=== PATIENT | female | born 1940 | race Caucasian/White ===

== ENCOUNTER 2017-11-05 08:31 | Emergency (ER) | END 2017-11-05 10:04 | disposition home or self-care (01) ==

== ENCOUNTER 2018-11-06 20:59 | Emergency (ER) | payer MEDICARE, OTHER ==
[~2018-11-06] VITALS: Ht 157.5 cm; Wt 72.3 kg
[~2018-11-06 20:59] MED LIST: HYDR-4011 PO; IBUP-1542 PO
[2018-11-06 21:01] VITALS: Ht 157.5 cm; Wt 72.3 kg
--- NOTE | 2018-11-06 21:51 | ERD ---
ER Documentation Chief Complaint Chief Complaint CUT TO R BOTTOM LIP HPI This is a 78-year-old female presents emergency department with complaints of right lower lip laceration that started Thursday. Patient stated that it bled. No bleeding at this time. Denies history of seizures, head injuries. Denies use of blood thinners. LMP: Denies headache, head injury, loss of consciousness, dizziness, neck pain, neck stiffness, throat pain, difficulty swallowing, difficulty breathing lying flat, shoulder pain, chest pain, back pain, abdominal pain, nausea, vomiting, constipation, diarrhea, urinary symptoms, or possibility being , loss of bowel and bladder control, trauma, injury, falls, difficulty walking due to pain, numbness or tingling sensation, calf pain, recent travel, recent major surgery in the last 3 weeks, calf pain, recent long travel, recent exposure to any illness, recent antibiotic use in the last 3 months, fever, chills, seizures. Past medical history: Surgical history: Social: Denies smoking, use of alcoholic beverages, use of illegal drugs. ROS All systems reviewed and are negative except as per history of present illness. Medications Home Meds Active Scripts Hydrophilic Base* (Aquaphor*) 454 Gm-Topical Oint, 1 APPLIC TOP BID for 7 Days, JAR Prov:MARIANO KAYE F 11/06/18 Hydrocodone/Acetaminophen ([place] 5-325 Tablet) 1 Each Tablet, 1 TAB PO Q6H PRN for PAIN, #12 TAB Prov:LEKKOS,APOSTOLOS A. DO 11/05/17 Ibuprofen* (Motrin*) 600 Mg Tab, 600 MG PO Q8, #30 TAB Prov:LEKKOS,APOSTOLOS A. DO 11/05/17 Allergies Allergies: Coded Allergies: No Known Allergy (Unverified , 11/05/17) PMhx/Soc History of Surgery: No Anesthesia Reaction: No Hx Neurological Disorder: No Hx Respiratory Disorders: No Hx Cardiac Disorders: Yes (HTN, High cholesterol) Hx Psychiatric Problems: No Hx Miscellaneous Medical Probl: No Hx Alcohol Use: No Hx Substance Use: No Hx Tobacco Use: No Physical Exam Vitals Vital Signs Date Temp Pulse Resp B/P (MAP) Pulse Ox O2 O2 Flow FiO2 Time Delivery Rate 11/06/18 98.2 80 16 137/84 99 Room Air 22:26 (101) 11/06/18 99.1 93 16 187/96 99 21:01 (126) Physical Exam Const: No acute distress Head: Atraumatic. Normocephalic. Scalp is intact. No signs of trauma to the head. Eyes: Normal Conjunctiva. There is no visual field loss. ENT: Normal External Ears, Nose and Mouth. Lips/throat: Right lower lip has a laceration measuring approximately 0.3 cm in length. No active bleeding. No tongue laceration. No tongue swelling. Able to control tongue movement. No signs of tooth avulsions. Neck: Full range of motion. No meningismus. No nuchal rigidity with no signs of meningeal irritation. Resp: Clear to auscultation bilaterally Cardio: Regular rate and rhythm, no murmurs Abd: Soft, non tender, non distended. Normal bowel sounds Skin: No petechiae or rashes Back: No midline or flank tenderness Ext: No cyanosis, or edema Neur: Awake and alert. No obvious facial droops. Follows commands. Sensation is intact. Equal mold finisher. Equal strength in bilateral upper and lower extremities. Romberg test negative. No neurological deficits. Psych: Normal Mood and Affect Procedures/MDM Diagnostic tests: Clinical exam. Treatment: Not applicable. Re-evaluation: No active bleeding. No seizure activity here in the emergency department. Patient and family member stated that they are comfortable going home. Patient and family member stated that they are ready to go home. Differential diagnosis I have low suspicion for cold sores, sepsis, deep space infection, seizures. Final diagnosis: Lip laceration. Prescription: Aquaphor. Follow-up with PCP in the next 24-48 hours. Come back here in the emergency department for any new symptoms or any worsening symptoms. All questions and concerns were answered. Patient and family members verbalized understanding and agreed with plan of care. Hemodynamically stable on discharge. Departure Diagnosis: Primary Impression: Lip laceration Condition: Stable Additional Instructions: Follow-up with PCP in the next 24-48 hours. Come back here in the emergency department for any new symptoms or any worsening symptoms. 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
[2018-11-06] MEDS ORDERED: HDRP454O TOP (22:14)
[2018-11-06 22:26] VITALS: BP 137/84; PULSE 80; RESP 16
== END 2018-11-06 22:27 | disposition home or self-care (01) ==
LOC: FTE 20:59
DX: S01.511A Laceration without foreign body of lip, initial encounter (principal); I10 Essential (primary) hypertension; X58.XXXA Exposure to other specified factors, initial encounter; Y92.9 Unspecified place or not applicable
CPT/HCPCS: 99282

== ENCOUNTER 2018-11-14 20:23 | Inpatient (IN) | payer MEDICARE, OTHER ==
[~2018-11-14] VITALS: Ht 142.2 cm; Wt 75.0 kg
[~2018-11-14 20:23] MED LIST changes: +HDRP454O TOP
[2018-11-14] MEDS ORDERED: CEFTRIAXONE 1 GM/50 ML (PMX) 50 ML IVPB STA (22:23)
[2018-11-14] MEDS: AZITHROMYCIN 500MG/NS (PMX) 250 ML IVPB SCH (23:41)
[2018-11-15] VITALS (7 sets, daily range): BP systolic 132–169; BP diastolic 64–84; PULSE 82–94; RESP 16–18; Ht 142.2 cm; Wt 75.0 kg
[2018-11-15] MEDS ORDERED: NACL 0.9% 3 ML SYG IV SCH (00:30)
[2018-11-15] MEDS ORDERED: BISACODYL (EC) 5 MG TAB PO PRN (00:30)
[2018-11-15] MEDS ORDERED: DOCUSATE SODIUM 100 MG CAP PO PRN (00:30)
[2018-11-15] MEDS ORDERED: ONDANSETRON 4 MG INJ IV PRN (00:30)
[2018-11-15] MEDS ORDERED: KETOROLAC 15 MG INJ IV STA (01:14)
--- NOTE | 2018-11-15 02:33 | HP ---
Date/Time of Note Date/Time of Note DATE: 11/15/18 TIME: 02:32 Assessment/Plan VTE Prophylaxis SCD applied (from Nsg): Yes Pharmacological prophylaxis: NA/contraindicated Pharm contraindication: low risk/ambulating Lines/Catheters IV Catheter Type (from Nrsg): Saline Lock Assessment/Plan Hospital Course This is a 78-year female being admitted to the telemetry floor for: #1 sepsis: Secondary to community-acquired pneumonia: Ceftriaxone, azithromycin IV. Trend lactate levels, first that was normal gentle IV fluid hydration. Await culture results. #2 community-acquired pneumonia: Ceftriaxone, azithromycin #3 abnormal chest x-ray: There is concern for possible neoplasm. Given that the patient does have a degree of anemia will obtain a CT of the chest to further evaluate. #4 microcytic anemia: We will check iron stores, check stool occult blood #5 hypertension: Currently not on medications monitor closely #6 diabetes mellitus: We will check hemoglobin A 1C, insulin sliding scale #7 hyperlipidemia: We will check lipid panel, currently not on statin #8 DVT GI prophylaxis: SCDs, no GI prophylaxis indicated Further treatment strategy will be implemented as per the clinical course. Result Diagram: 11/14/18 2338 11/14/18 2324 Results 24hrs Laboratory Tests Test 11/14/18 23:23 11/14/18 23:24 11/14/18 23:37 11/14/18 23:38 POC Venous Lactate 1.7 Sodium Level 138 Potassium Level 4.2 Chloride Level 104 Carbon Dioxide Level 24 Anion Gap 10 Blood Urea Nitrogen 18 Creatinine 1.08 H Est Glomerular Filtrat Rate mL/min Glucose Level 150 Calcium Level 8.9 Lactic Acid Level 1.7 White Blood Count 12.8 H Red Blood Count 4.29 Hemoglobin 11.1 L Hematocrit 34.1 L Mean Corpuscular 79.5 L Volume Mean Corpuscular 25.9 L Hemoglobin Mean Corpuscular 32.6 Hemoglobin Concent Red Cell 21.9 H Distribution Width Platelet Count 131 L Mean Platelet Volume Immature 0.400 Granulocytes % Neutrophils % 78.7 H Lymphocytes % 9.8 L Monocytes % 9.0 Eosinophils % 1.9 Basophils % 0.2 Nucleated Red Blood 0.0 Cells % Immature 0.050 H Granulocytes # Neutrophils # 10.1 H Lymphocytes # 1.3 Monocytes # 1.2 H Eosinophils # 0.2 Basophils # 0.0 Nucleated Red Blood 0.0 Cells # HPI/ROS Admit Date/Time Admit Date/Time Nov 14, 2018 at 22:58 Hx of Present Illness Plan: Back pain x2 days This is a 78-year-old female with no significant past medical history presents to the emergency department complaining of pain just below her right scapula for the past 2 days she also reports pain when taking deep inspiration with associated shortness of breath. She denies any chest pain. She denies any fevers or chills or other symptoms at this time. Symptoms are currently moderate in severity. Review: NKDA medications: See MAR ROS Const: As per HPI Eyes : No pain discharge or redness or change in visual acuity ENT: No pain, sore throat, congestion, congestion, dysphagia or discharge Respiratory: As per HPI Cardiovascular: No chest pain, palpitation, PND, or edema GI : no change in appetite, abdominal pain, nausea, vomiting, diarrhea, constipation, or change in the color his stool Genitourinary: No dysuria, hematuria, flank pain , discharge or CVA tenderness Musculoskeletal: No joint pain, back pain, neck pain, restricted range of motion in neck or joints Skin: No rash, bruising or hives Neuro: No headache, dizziness, syncope, seizure, focal weakness Endocrine: No polyuria, polydipsia, temperature intolerance Psych: No hallucination, depression, anxiety or suicidal ideation PMH/Family/Social Past Medical History Hypertension, diabetes, hyperlipidemia Medications Current Medications Azithromycin 250 ml @ 250 mls/hr Q24H IVPB Last administered on 11/14/18at 23:41; Admin Dose 250 MLS/HR; Start 11/14/18 at 22:30 IV Flush (NS 3 ml) 3 ml PER PROTOCOL IV ; Start 11/15/18 at 00:30 Ondansetron HCl (Zofran Inj) 4 mg Q4 PRN IV NAUSEA/VOMITING; Start 11/15/18 at 00:30 Acetaminophen (Tylenol Tab) 650 mg Q6H PRN PO .PAIN 1-3 OR TEMP; Start 11/15/18 at 00:30 Docusate Sodium (Colace) 100 mg Q12H PRN PO .CONSTIPATION; Start 11/15/18 at 00:30 Bisacodyl (Dulcolax) 5 mg DAILY PRN PO .CONSTIPATION; Start 11/15/18 at 00:30 Coded Allergies: No Known Allergy (Unverified , 11/05/17) Past Surgical History x1, right foot surgery Family History Significant Family History: no pertinent family hx Social History Alcohol Use: none Smoking Status: Never smoker Drug Use: none Exam/Review of Systems Vital Signs Vitals Vital Signs Date Temp Pulse Resp B/P (MAP) Pulse Ox O2 O2 Flow FiO2 Time Delivery Rate 11/15/18 98.1 89 18 150/84 95 01:51 (106) 11/15/18 Nasal 2.0 00:40 Cannula Intake and Output 11/14/18 11/14/18 11/15/18 1414:59 22:59 06:59 IntakeIntake Total 300 ml BalanceBalance 300 ml Exam Exam General: Patient is a pleasant female currently lying in bed in mild distress from back pain HEENT: Atraumatic, normocephalic. The pupils are equal, round and reactive. Extraocular motor are intact Neck: Supple with full range of motion. No rigidity or meningismus Chest: Nontender Lungs: Crackles at the right lung field, non-labored breathing Heart: Normal S1-S2, Regular rhythm and rate. No murmur, S3, or S4 Abdomen: Soft , nontender, nondistended , bowel sounds are present. No guarding no rebound tenderness , No masses or organomegaly. No costovertebral temporal angle mass Extremities: Normal to inspection, no edema no cyanosis Neurologic: Normal mental status, speech normal, cranial nerves II through XII are intact, motor and sensory are intact, Additional Comments PROCEDURE: XR Chest. CLINICAL INDICATION: Cough. TECHNIQUE: Two views. Frontal and lateral. COMPARISON: No prior study is available for comparison. FINDINGS: There is right lung base patchy consolidation. Bilateral perihilar prominence The heart size is normal. there is a tortuous calcified thoracic aorta. There is no pleural effusion. There is no pneumothorax. There are degenerative changes of the spine. IMPRESSION: There is right lung base patchy consolidation. Bilateral perihilar prominence . Follow-up to resolution is recommended to exclude underlying neoplasm. Physician Mishel Date Time Electronically viewed and signed by Yoan Drew Physician on 11/14/2018 21:49 RD/ CC: CULLEN STORM MD [id number] PROCEDURE: XR Lumbar Spine. CLINICAL INDICATION: Low back pain. TECHNIQUE: AP, lateral and cone-down lateral views of the lumbar spine were obtained. 3 images. COMPARISON: None. FINDINGS: Bony alignment: Normal. Vertebral body heights: Maintained. 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 Otherwise reasonably well maintained for a patient of this age.. Enthesopathy: Minimal. Facet joints: Degenerative change at L4-5 and L5-S1. Posterior elements: No visible abnormalities. Aortic calcifications: Minimal. Other soft tissues: Unremarkable. IMPRESSION: 1. Mild degenerative change in the lumbar spine for a patient of this age. 2. No evidence of compression fracture in the lumbar spine. RPTAT:AAJJ Physician Shahla Date Time Electronically viewed and signed by Physician Shahla on 11/14/2018 23:05 GW/ CC: JOHNIE ISBELL [id number] JOHNIE ISBELL Nov 15, 2018 02:33
--- NOTE | 2018-11-15 05:09 | ERD ---
ER Documentation Chief Complaint Chief Complaint BACK PAIN, R SHOULDER BLADE X'S 2 DAYS HPI 78-year-old female with no significant past medical history presents to the emergency department complaining of pain just below her right scapula for the past several days. She also reports pain when taking deep inspiration with associated shortness of breath. She denies any chest pain. She denies any fevers or chills or other symptoms at this time. Symptoms are currently moderate in severity. ROS All systems reviewed and are negative except as per history of present illness. Medications Home Meds Active Scripts Hydrophilic Base* (Aquaphor*) 454 Gm-Topical Oint, 1 APPLIC TOP BID for 7 Days, JAR Prov:MARIANO KAYE F 11/06/18 Hydrocodone/Acetaminophen ([place] 5-325 Tablet) 1 Each Tablet, 1 TAB PO Q6H PRN for PAIN, #12 TAB Prov:LEKKOS,APOSTOLOS A. DO 11/05/17 Ibuprofen* (Motrin*) 600 Mg Tab, 600 MG PO Q8, #30 TAB Prov:LEKKOS,APOSTOLOS A. DO 11/05/17 Allergies Allergies: Coded Allergies: No Known Allergy (Unverified , 11/05/17) PMhx/Soc History of Surgery: Yes (Hysterectomy, pt is unable to remember the date) Anesthesia Reaction: No Hx Neurological Disorder: No Hx Respiratory Disorders: No Hx Cardiac Disorders: Yes (Hypertension and high cholesterol, pt is unable to remember dates ) Hx Psychiatric Problems: No Hx Miscellaneous Medical Probl: No Hx Alcohol Use: No Hx Substance Use: No Hx Tobacco Use: No Smoking Status: Never smoker FmHx Family History: No diabetes Physical Exam Vitals Vital Signs Date Temp Pulse Resp B/P (MAP) Pulse Ox O2 O2 Flow FiO2 Time Delivery Rate 11/14/18 100.4 89 18 171/75 93 20:26 (107) Physical Exam Const: No acute distress Head: Atraumatic Eyes: Normal Conjunctiva ENT: Normal External Ears, Nose and Mouth. Neck: Full range of motion. No meningismus. Resp: Mild crackles noted to the right lower lung field. No respiratory distress. Cardio: Regular rate and rhythm, no murmurs Abd: Soft, non tender, non distended. Normal bowel sounds Skin: No petechiae or rashes Back: No midline or flank tenderness Ext: No cyanosis, or edema Neur: Awake and alert Psych: Normal Mood and Affect Result Diagram: 11/14/18 2338 11/14/18 2324 Results 24 hrs Current Medications Medications Dose Sig/Bhupendra Start Time Status Last (Trade) Ordered Route PRN Stop Time Admin Dose Reason Admin Ceftriaxone 50 ml @ ONCE STAT 11/14/18 DC 11/14/18 Sodium 100 mls/hr IVPB 22:23 23:40 11/14/18 22:52 Azithromycin 250 ml @ Q24H IVPB 11/14/18 11/14/18 250 mls/hr 22:30 23:41 Procedures/MDM 78-year-old female presents with signs and symptoms and chest x-ray most consistent with pneumonia. Patient is also mildly hypoxic. No evidence to suggest sepsis. Patient will need to be admitted for further treatment including IV antibiotics. Patient was made aware of medical decision making and plan for admission and she was in agreement. I discussed this case with attending ED physician, Dr. Gregg Rodríguez, who is in agreement with the ED course and plan for admission and he further facilitated the admission process. Patient remained hemodynamically stable under my direct care. Departure Diagnosis: Primary Impression: Pneumonia Condition: LULA Clay PA-C Nov 15, 2018 05:09
[2018-11-15] MEDS: ACETAMINOPHEN 325 MG TAB PO PRN ×3 (06:51→17:53)
--- NOTE | 2018-11-15 15:44 | PN ---
Date/Time of Note Date/Time of Note DATE: 11/15/18 TIME: 15:41 Assessment/Plan VTE Prophylaxis Risk score (from [facility])>0 risk: 4 SCD applied (from [facility]): Yes Pharmacological prophylaxis: heparin Lines/Catheters [facility] Urinary Cath still in place: No Assessment/Plan Hospital Course Assessment and plan 1. Sepsis secondary to community acquired pneumonia. - Continue antibiotic. - Cultures pending. - Antipyretics for fever. 2. Abnormal chest x-ray. - Patient did have initial chest x-ray suspect for possible neoplasm. - CT scan of the chest is pending. Follow-up. 3. Hypertension. - Monitor BP. - Antihypertensives as needed. 4. Diabetes. - Continue insulin regimen. 5. hyperlipidemia. - Follow-up on CHD panel 6. Anemia. - monitor H&H. Disposition and plan. Follow-up on CT scan of the chest. Further recommend ations pending clinical course Discussed POC with Dr. Santo Result Diagram: 11/14/18 7028 11/14/18 2324 Results 24hrs Laboratory Tests Test 11/14/18 23:23 11/14/18 23:24 11/14/18 23:37 11/14/18 23:38 POC Venous Lactate 1.7 Sodium Level 138 Potassium Level 4.2 Chloride Level 104 Carbon Dioxide Level 24 Anion Gap 10 Blood Urea Nitrogen 18 Creatinine 1.08 H Est Glomerular Filtrat Rate mL/min Glucose Level 150 Calcium Level 8.9 Lactic Acid Level 1.7 White Blood Count 12.8 H Red Blood Count 4.29 Hemoglobin 11.1 L Hematocrit 34.1 L Mean Corpuscular 79.5 L Volume Mean Corpuscular 25.9 L Hemoglobin Mean Corpuscular 32.6 Hemoglobin Concent Red Cell 21.9 H Distribution Width Platelet Count 131 L Mean Platelet Volume Immature 0.400 Granulocytes % Neutrophils % 78.7 H Lymphocytes % 9.8 L Monocytes % 9.0 Eosinophils % 1.9 Basophils % 0.2 Nucleated Red Blood 0.0 Cells % Immature 0.050 H Granulocytes # Neutrophils # 10.1 H Lymphocytes # 1.3 Monocytes # 1.2 H Eosinophils # 0.2 Basophils # 0.0 Nucleated Red Blood 0.0 Cells # Test 11/15/18 02:26 11/15/18 05:20 11/15/18 09:48 11/15/18 09:49 Lactic Acid Level 1.9 1.6 Iron Level 17 L Total Iron Binding 329 Capacity Percent Iron 5 L Saturation Hemoglobin A1c 6.0 H Magnesium Level 2.5 Ferritin 21.9 Thyroid Stimulating 1.430 Hormone (TSH) Subjective 24 Hr Interval Summary Free Text/Dictation Still reports having some pain on posterior portion of back. Reports better breathing at this time. Exam/Review of Systems Exam Vitals Vital Signs Date Temp Pulse Resp B/P (MAP) Pulse Ox O2 O2 Flow FiO2 Time Delivery Rate 11/15/18 98.2 89 17 169/73 94 15:28 (105) 11/15/18 Nasal 2.0 08:10 Cannula Intake and Output 11/14/18 11/14/18 11/15/18 1515:00 23:00 07:00 IntakeIntake Total 360 ml OutputOutput Total 1 ml BalanceBalance 359 ml Constitutional: alert, oriented, obese Head: normocephalic Neck: supple, non-tender Respiratory: clear to auscultation Cardiovascular: regular rate and rhythm Gastrointestinal: soft, non-tender Neurological: BIOCHEMICAL ENGINEER II-XII intact, nl mental status, nl speech Results Results 24hrs Laboratory Tests Test 11/14/18 23:23 11/14/18 23:24 11/14/18 23:37 11/14/18 23:38 POC Venous Lactate 1.7 Sodium Level 138 Potassium Level 4.2 Chloride Level 104 Carbon Dioxide Level 24 Anion Gap 10 Blood Urea Nitrogen 18 Creatinine 1.08 H Est Glomerular Filtrat Rate mL/min Glucose Level 150 Calcium Level 8.9 Lactic Acid Level 1.7 White Blood Count 12.8 H Red Blood Count 4.29 Hemoglobin 11.1 L Hematocrit 34.1 L Mean Corpuscular 79.5 L Volume Mean Corpuscular 25.9 L Hemoglobin Mean Corpuscular 32.6 Hemoglobin Concent Red Cell 21.9 H Distribution Width Platelet Count 131 L Mean Platelet Volume Immature 0.400 Granulocytes % Neutrophils % 78.7 H Lymphocytes % 9.8 L Monocytes % 9.0 Eosinophils % 1.9 Basophils % 0.2 Nucleated Red Blood 0.0 Cells % Immature 0.050 H Granulocytes # Neutrophils # 10.1 H Lymphocytes # 1.3 Monocytes # 1.2 H Eosinophils # 0.2 Basophils # 0.0 Nucleated Red Blood 0.0 Cells # Test 11/15/18 02:26 11/15/18 05:20 11/15/18 09:48 11/15/18 09:49 Lactic Acid Level 1.9 1.6 Iron Level 17 L Total Iron Binding 329 Capacity Percent Iron 5 L Saturation Hemoglobin A1c 6.0 H Magnesium Level 2.5 Ferritin 21.9 Thyroid Stimulating 1.430 Hormone (TSH) Medications Medication Current Medications Azithromycin 250 ml @ 250 mls/hr Q24H IVPB Last administered on 11/14/18at 23:41; Admin Dose 250 MLS/HR; Start 11/14/18 at 22:30 IV Flush (NS 3 ml) 3 ml PER PROTOCOL IV ; Start 11/15/18 at 00:30 Ondansetron HCl (Zofran Inj) 4 mg Q4 PRN IV NAUSEA/VOMITING; Start 11/15/18 at 00:30 Acetaminophen (Tylenol Tab) 650 mg Q6H PRN PO .PAIN 1-3 OR TEMP Last administered on 11/15/18at 11:50; Admin Dose 650 MG; Start 11/15/18 at 00:30 Docusate Sodium (Colace) 100 mg Q12H PRN PO .CONSTIPATION; Start 11/15/18 at 00:30 Bisacodyl (Dulcolax) 5 mg DAILY PRN PO .CONSTIPATION; Start 11/15/18 at 00:30 Morphine Sulfate (morphine) 1 mg Q4H PRN IV SEVERE PAIN LEVEL 7-10; Start 11/15 at 07:30 HUONG COHN NP Nov 15, 2018 15:44
[2018-11-15] MEDS: morphine 2 MG INJ IV PRN (15:46)
[2018-11-15] MEDS: HEPARIN 5,000 UNIT/1 ML VIAL SC SCH (21:00)
[2018-11-15] MEDS ORDERED: CEFTRIAXONE 1 GM/50 ML (PMX) 50 ML IVPB ONE (22:30)
[2018-11-16] MEDS: AZITHROMYCIN 500MG/NS (PMX) 250 ML IVPB SCH ×2 (00:02→22:06)
[2018-11-16 03:47] VITALS: BP 146/66; PULSE 84; RESP 18
[2018-11-16 07:07] VITALS: BP 151/72; PULSE 91; RESP 16
[2018-11-16] MEDS: HEPARIN 5,000 UNIT/1 ML VIAL SC SCH ×2 (08:58→21:34)
--- NOTE | 2018-11-16 14:16 | PN ---
Date/Time of Note Date/Time of Note DATE: 11/16/18 TIME: 14:13 Assessment/Plan VTE Prophylaxis Risk score (from [facility])>0 risk: 4 SCD applied (from [facility]): Yes Pharmacological prophylaxis: heparin Lines/Catheters IV Catheter Type (from [facility] Saline Lock Urinary Cath still in place: No Assessment/Plan Hospital Course Assessment and plan 1. Sepsis secondary to community acquired pneumonia. - Continue antibiotic. - Antipyretics prn for fever. 2. Abnormal chest x-ray. - Patient did have initial chest x-ray suspect for possible neoplasm. - CT scan of the chest : Indeterminate 2.3 cm mass-like opacity is present in the perihilar left lower lobe - neoplasm is not excluded. - pulmonary and oncology consult to follow 3. Hypertension. - Monitor BP. - Antihypertensives as needed. 4. Diabetes. - Continue insulin regimen. 5. hyperlipidemia. - Follow-up on CHD panel 6. Anemia. - monitor H&H. Disposition and plan. continue abx. pulmonary and oncology consult to follow. Monitor inhouse Discussed POC with Dr. Santo Result Diagram: 11/16/18 0513 11/16/18 0513 Results 24hrs Laboratory Tests Test 11/16/18 05:13 White Blood Count 12.6 H Red Blood Count 4.02 L Hemoglobin 10.4 L Hematocrit 31.6 L Mean Corpuscular Volume 78.6 L Mean Corpuscular Hemoglobin 25.9 L Mean Corpuscular Hemoglobin Concent 32.9 Red Cell Distribution Width 21.2 H Platelet Count 182 # Mean Platelet Volume 10.9 H Immature Granulocytes % 0.500 H Neutrophils % 76.8 Lymphocytes % 13.4 L Monocytes % 8.2 Eosinophils % 0.9 Basophils % 0.2 Nucleated Red Blood Cells % 0.0 Immature Granulocytes # 0.060 H Neutrophils # 9.7 H Lymphocytes # 1.7 Monocytes # 1.0 H Eosinophils # 0.1 Basophils # 0.0 Nucleated Red Blood Cells # 0.0 Sodium Level 139 Potassium Level 3.8 Chloride Level 108 Carbon Dioxide Level 21 Anion Gap 10 Blood Urea Nitrogen 10 Creatinine 0.56 Est Glomerular Filtrat Rate mL/min Glucose Level 138 Calcium Level 8.8 Total Bilirubin 1.0 Direct Bilirubin 0.00 Indirect Bilirubin 1.0 Aspartate Amino Transf (AST/SGOT) 67 H Alanine Aminotransferase (ALT/SGPT) 66 Alkaline Phosphatase 122 H Total Protein 7.3 Albumin 3.8 Globulin 3.50 H Albumin/Globulin Ratio 1.08 Subjective 24 Hr Interval Summary Free Text/Dictation Reports better breathing and less right shoulder pain. Exam/Review of Systems Exam Vitals Vital Signs Date Temp Pulse Resp B/P (MAP) Pulse Ox O2 O2 Flow FiO2 Time Delivery Rate 11/16/18 Nasal 2.0 07:52 Cannula 11/16/18 98.3 91 16 151/72 94 07:07 (98) Intake and Output 11/15/18 11/15/18 11/16/18 1515:00 23:00 07:00 IntakeIntake Total 620 ml 350 ml BalanceBalance 620 ml 350 ml Exam Constitutional: alert, oriented, obese Head: normocephalic Neck: supple, non-tender Respiratory: clear to auscultation Cardiovascular: regular rate and rhythm Gastrointestinal: soft, non-tender Neurological: CLINICAL DATA PROGRAMMER II-XII intact, nl mental status, nl speech Results Results 24hrs Laboratory Tests Test 11/16/18 05:13 White Blood Count 12.6 H Red Blood Count 4.02 L Hemoglobin 10.4 L Hematocrit 31.6 L Mean Corpuscular Volume 78.6 L Mean Corpuscular Hemoglobin 25.9 L Mean Corpuscular Hemoglobin Concent 32.9 Red Cell Distribution Width 21.2 H Platelet Count 182 # Mean Platelet Volume 10.9 H Immature Granulocytes % 0.500 H Neutrophils % 76.8 Lymphocytes % 13.4 L Monocytes % 8.2 Eosinophils % 0.9 Basophils % 0.2 Nucleated Red Blood Cells % 0.0 Immature Granulocytes # 0.060 H Neutrophils # 9.7 H Lymphocytes # 1.7 Monocytes # 1.0 H Eosinophils # 0.1 Basophils # 0.0 Nucleated Red Blood Cells # 0.0 Sodium Level 139 Potassium Level 3.8 Chloride Level 108 Carbon Dioxide Level 21 Anion Gap 10 Blood Urea Nitrogen 10 Creatinine 0.56 Est Glomerular Filtrat Rate mL/min Glucose Level 138 Calcium Level 8.8 Total Bilirubin 1.0 Direct Bilirubin 0.00 Indirect Bilirubin 1.0 Aspartate Amino Transf (AST/SGOT) 67 H Alanine Aminotransferase (ALT/SGPT) 66 Alkaline Phosphatase 122 H Total Protein 7.3 Albumin 3.8 Globulin 3.50 H Albumin/Globulin Ratio 1.08 Medications Medication Current Medications Azithromycin 250 ml @ 250 mls/hr Q24H IVPB Last administered on 11/16/18at 00:02; Admin Dose 250 MLS/HR; Start 11/14/18 at 22:30 IV Flush (NS 3 ml) 3 ml PER PROTOCOL IV ; Start 11/15/18 at 00:30 Ondansetron HCl (Zofran Inj) 4 mg Q4 PRN IV NAUSEA/VOMITING; Start 11/15/18 at 00:30 Acetaminophen (Tylenol Tab) 650 mg Q6H PRN PO .PAIN 1-3 OR TEMP Last administered on 11/16/18at 00:00; Admin Dose 650 MG; Start 11/15/18 at 00:30 Docusate Sodium (Colace) 100 mg Q12H PRN PO .CONSTIPATION; Start 11/15/18 at 00:30 Bisacodyl (Dulcolax) 5 mg DAILY PRN PO .CONSTIPATION; Start 11/15/18 at 00:30 Morphine Sulfate (morphine) 1 mg Q4H PRN IV SEVERE PAIN LEVEL 7-10 Last administered on 11/15/18at 15:46; Admin Dose 1 MG; Start 11/15/18 at 07:30 Heparin Sodium (Porcine) (Heparin (5000 Units/1ml)) 5,000 unit BID SC Last administered on 11/16/18at 08:58; Admin Dose 5,000 UNIT; Start 11/15/18 at 21:00 HUONG COHN NP Nov 16, 2018 14:16
[2018-11-16 15:19] VITALS: BP 126/60; PULSE 83; RESP 17
--- NOTE | 2018-11-16 15:22 | CONS ---
DATE OF ADMISSION: 11/14/2018 DATE OF CONSULTATION: 11/16/2018 TYPE OF CONSULTATION: Pulmonary. REASON FOR CONSULTATION: Shortness of breath. Thank you, Dr. Sierra, for this consultation. HISTORY OF PRESENT ILLNESS: This is a 78-year-old lady who came in with several day history of right scapular pain, no orthopnea, PND, no fever, no chills, no chest pain or palpitations. Had a subsequ ent CT of the chest, found to have a 2.3 cm left perihilar mass concerning for possible malignancy wi th trace pleural effusion. No hemoptysis, hematemesis, no nausea, no vomiting, no chest pain or palp itations. PAST MEDICAL HISTORY: Degenerative joint disease. MEDICATIONS: Per chart. ALLERGIES: None. SOCIAL HISTORY: Nonsmoker, no alcohol, no history of drug use. FAMILY HISTORY: Noncontributory. SYSTEMS REVIEW: A 12-point review of systems was negative other than that mentioned above. PHYSICAL EXAMINATION: GENERAL: Well-nourished, well-developed lady, comfortable at rest, no acute distress. VITAL SIGNS: Currently afebrile, pulse is 90, blood pressure 150/72, O2 saturation 96% on 2 L nasal cannula. NECK: Supple. No JVD or lymphadenopathy. CARDIAC: S1, S2, no added sounds or murmurs. CHEST: Diminished air entry bilaterally. EXTREMITIES: No cyanosis, clubbing, 1+ edema. NEUROLOGICAL: Grossly intact. No focal deficits. LABORATORY DATA: White count 12.6, hemoglobin 10.4, platelets 182. BUN 10, creatinine 0.56. Should er x-ray shows osteopenia, CT chest findings as above. IMPRESSION AND PLAN: Perihilar mass concerning for possible malignancy. We will discuss findings wi th the patient's family regarding further workup which could include bronchoscopy and/or outpatient P ET scan and thoracic surgery evaluation. Dictated By: GUICHO MOJICA MD SV/PHILIP Conf#: [id number] DID#: [id number] CC: JOHNIE SIERRA MD;*EndCC*
[2018-11-16 20:00] VITALS: BP 148/79; PULSE 91; RESP 16
--- NOTE | 2018-11-16 20:59 | CONS ---
DATE OF ADMISSION: 11/14/2018 DATE OF CONSULTATION: 11/16/2018 TYPE OF CONSULTATION: Medical oncology. REASON FOR CONSULTATION: Right chest mass. PROVIDER REQUESTING CONSULTATION: Solitario Rachel NP Dear Mr. Rachel: Thank you very much for asking me to see this very interesting and pleasant patient in oncologic cons ultation. As you know, Ms. Fox is a 78-year-old female who states she was in good healt h until approximately 3 days prior to admission. The patient at that time began had sudden onset of pain in the inferior aspect of her right scapula. The pain seemed to be worse when she did take deep inspiration and increased with any motion such as reaching with her arm. The pain does not radiate to any other areas. The patient states that the pain started suddenly. She had not had any trauma to this area nor has s he been doing any particular physical activity. The patient has not actually had any complaints of shortness of breath. Prior to the onset of pain, she has not had any cough or sputum production. The patient has no history of any similar pain in the past other than some occasional lumbar pain. Other than the pain, the patient has been otherwise asymptomatic. She has had no fevers, chills or n ight sweats. Her appetite has been good. She has not noticed any unusual weight loss or gain. She has had no abdominal pain. As noted, the patient has not actually had any cough. There has been no hemoptysis. The patient was admitted to [facility] after presenting to the emergency room with these complaints on 11/15/2018. On admission, a chest x-ray was done which demonstrated patchy conso lidation in the right lung base as well as bilateral hilar prominence. An x-ray of the lumbar spine was done and this showed some evidence of degenerative disease, but no evidence of compression fractu re. X-ray of the shoulder showed osteopenia but no fractures identified. A CT scan of the chest was done on 11/15/2018. This demonstrated "indeterminate" 2.3 cm mass-like op acity. This was present in left perihilar and left lower lobe. There was trace right pleural fluid and mild cardiomegaly. There was a large hiatal hernia. There was some cholelithiasis without evide nce of cholecystitis. On admission, the patient's white count was 12,800 with an absolute neutrophil count of 10,100, hemog lobin 11.1, hematocrit 34.1, MCV 79.5, MCH 25.9, MCHC 32.6, RDW 21.9 and platelet count 131,000. On admission, the sodium was 138, potassium 4.2, BUN 18, creatinine 1.08, calcium 8.6 with lactic acid o f 1.7. Serum iron was 17, iron binding capacity 329, percent saturation was 5%. Ferritin is 21.9. Total bilirubin was 1 with direct bilirubin of 0, AST 67, ALT 77, alkaline phosphatase 122, albumin 3 .8, globulin 3.50. PAST MEDICAL HISTORY: Relatively unremarkable. She does apparently have history of hypertension as well as hypercholesterolemia. There may be a history of diabetes as well. MEDICATIONS: Include: 1. Ibuprofen. 2. Hydrocodone with acetaminophen. 3. The patient also has been taking ondansetron 4 mg q.4 hours for pain. ALLERGIES: THE PATIENT HAS NO KNOWN ALLERGIES. PAST SURGICAL HISTORY: Only surgeries in the past apparently have been some type of foot surgery and hysterectomy. The patient does not know why she had hysterectomy. SOCIAL HISTORY: The patient states she does not smoke or use any tobacco products. She does not dri nk alcohol. The patient has worked in the past cleaning homes. She has not knowingly been exposed to any industr ial toxins or ionizing radiation. PHYSICAL EXAMINATION: GENERAL: At this time reveals a well-developed, well-nourished but obese female who is in no acute d istress, unless she tries to move her right arm. VITAL SIGNS: Temperature 98.4, pulse 83 per minute and regular, respirations 17, blood pressure 126/ 60, pulse oximetry 95% on 2 liters by nasal cannula. SKIN: No ecchymosis, no petechiae or rashes. HEENT: Normocephalic. No evidence of trauma. The pupils are equal, round, reactive to light and ac commodation. Sclerae are nonicteric. Oral mucosa is moist without lesions. Tongue is well papillat ed. There is no gingival hyperplasia, no hypertrophy of Waldeyer's ring, no mucosal telangiectasias. There is nasal oxygen in place. NECK: Supple. No jugular venous distention or thyroid enlargement. No carotid bruits. CHEST: No rhonchi, wheezes, rales or rubs. The patient does have some splinting with pain on the ri ght side when taking deep inspiration. There is some pain on palpation of the right scapula. HEART: Regular sinus rhythm. No S3, S4, murmurs or rubs. ABDOMEN: Obese, but there are no masses or ascites. Bowel sounds are active. There are no hernia d efects. No rebound tenderness. EXTREMITIES: Good range of motion except for right arm which is limited by the pain the patient comp lains of in the right scapula. There is no clubbing, no edema or cyanosis. No palpable cords or Seb ans sign. NEUROLOGIC: Normal. DISCUSSION: This patient is reported to have a mass on the left perihilar, left lower lobe region. The patient's pain, however, is located in the right scapular region. It is not actually pleuritic i n nature but does hurt when the patient moves her right arm. There is no palpable lymphadenopathy or organomegaly. There is no evidence of a Chelo syndrome. The patient does have mild hypochromic microcytic anemia. See her iron studies are, however, also co nsistent with iron deficiency. Other chemistries demonstrate an elevated AST and alkaline phosphatase. At this time, I feel the patient should have stools for occult blood obtained. We would also suggest CT scan of the abdomen and pelvis. We will obtain a bone scan. Ultimately, it would likely be necessary for a biopsy of the perihilar mass to be obtained unless the re are other more accessible abnormalities. Once again, thank you very much for the opportunity of participating in the medical care of this very pleasant patient. I will be happy to follow this patient with you and assist in her hematologic and oncologic evaluation and followup as necessary. Dictated By: DEYANIRA NARVAEZ MD SR/NTS Conf#: [id number] DID#: [id number] CC: JOHNIE ISBELL MD;*EndCC*
[2018-11-16] MEDS ORDERED: IOHEXOL 14.3 MG(I)/ML (ADULT) BTL PO ONE (21:00)
[2018-11-16] MEDS: ACETAMINOPHEN 325 MG TAB PO PRN ×2 (21:11)
[2018-11-16 23:59] VITALS: BP 153/68; PULSE 86; RESP 18
[2018-11-17] VITALS: BP 141/67; RESP 20
[2018-11-17 03:43] VITALS: BP 137/62; PULSE 87; RESP 18
[2018-11-17] MEDS: ACETAMINOPHEN 325 MG TAB PO PRN ×2 (03:56→23:51)
[2018-11-17 07:43] VITALS: BP 144/71; PULSE 81; RESP 18
[2018-11-17] MEDS: HEPARIN 5,000 UNIT/1 ML VIAL SC SCH ×2 (08:51→22:02)
[2018-11-17 11:56] VITALS: BP 145/68; PULSE 86; RESP 18
[2018-11-17] MEDS ORDERED: IOHEXOL 14.3 MG(I)/ML (ADULT) BTL PO ONE (12:00)
--- NOTE | 2018-11-17 12:30 | PN ---
Date/Time of Note Date/Time of Note DATE: 11/17/18 TIME: 12:27 Assessment/Plan VTE Prophylaxis Risk score (from [facility])>0 risk: 4 SCD applied (from [facility]): Yes Pharmacological prophylaxis: heparin Lines/Catheters IV [facility]ter [facility] (from [facility] Saline Lock Urinary Cath still in place: No Assessment/Plan Hospital Course Assessment and plan 1. Sepsis secondary to community acquired pneumonia. - Continue antibiotic. - Antipyretics prn for fever. - improving 2. Abnormal chest x-ray. - Patient did have initial chest x-ray suspect for possible neoplasm. - CT scan of the chest : Indeterminate 2.3 cm mass-like opacity is present in the perihilar left lower lobe - neoplasm is not excluded. - pulmonary and oncology following 3. Hypertension. - Monitor BP. - Antihypertensives as needed. 4. Diabetes. - Continue insulin regimen. 5. hyperlipidemia. 6. Anemia. - monitor H&H. Disposition and plan. f/u abdominal CT. oncology work up in progress. transfer to med/surg Discussed POC with Dr. Santo Result Diagram: 11/16/1851211/16/18512 Subjective 24 Hr Interval Summary Free Text/Dictation appear comfortable at present. no respiratory distress seen. Exam/Review of Systems Exam Vitals Vital Signs Date Temp Pulse Resp B/P (MAP) Pulse Ox O2 O2 Flow FiO2 Time Delivery Rate 11/17/18 98.6 86 18 145/68 91 11:56 (93) 11/17/18 Room Air 03:43 11/16/18 2.0 19:34 Intake and Output 11/16/18 11/16/18 11/17/18 1515:00 23:00 07:00 IntakeIntake Total 750 ml 350 ml BalanceBalance 750 ml 350 ml Exam Constitutional: alert, oriented, obese Head: normocephalic Neck: supple, non-tender Respiratory: clear to auscultation Cardiovascular: regular rate and rhythm Gastrointestinal: soft, non-tender Neurological: EDGER TECHNICIAN II-XII intact, nl mental status, nl speech Medications Medication Current Medications Azithromycin 250 ml @ 250 mls/hr Q24H IVPB Last administered on 11/16/18at 22:06; Admin Dose 250 MLS/HR; Start 11/14/18 at 22:30 IV Flush (NS 3 ml) 3 ml PER PROTOCOL IV ; Start 11/15/18 at 00:30 Ondansetron HCl (Zofran Inj) 4 mg Q4 PRN IV NAUSEA/VOMITING; Start 11/15/18 at 00:30 Acetaminophen (Tylenol Tab) 650 mg Q6H PRN PO .PAIN 1-3 OR TEMP Last administered on 11/17/18at 03:56; Admin Dose 650 MG; Start 11/15/18 at 00:30 Docusate Sodium (Colace) 100 mg Q12H PRN PO .CONSTIPATION; Start 11/15/18 at 00:30 Bisacodyl (Dulcolax) 5 mg DAILY PRN PO .CONSTIPATION; Start 11/15/18 at 00:30 Morphine Sulfate (morphine) 1 mg Q4H PRN IV SEVERE PAIN LEVEL 7-10 Last administered on 11/15/18at 15:46; Admin Dose 1 MG; Start 11/15/18 at 07:30 Heparin Sodium (Porcine) (Heparin (5000 Units/1ml)) 5,000 unit BID SC Last administered on 11/17/18at 08:51; Admin Dose 5,000 UNIT; Start 11/15/18 at 21:00 HUONG COHN NP Nov 17, 2018 12:30
[2018-11-17] MEDS ORDERED: IOHEXOL 300MG/ML 150 ML BTL ONE (14:55)
[2018-11-17] MEDS ORDERED: SOD CHLORIDE 0.9% 100 ML ONE (14:55)
[2018-11-17 15:28] VITALS: BP 168/79; PULSE 83; RESP 17
--- NOTE | 2018-11-17 16:29 | CONS ---
Consult Date/Type/Reason Admit Date/Time Nov 14, 2018 at 22:58 Initial Consult Date Type of Consult Pulmonary Date/Time of Note DATE: 11/17/18 TIME: 16:28 Subjective Patient remained stable. No new events. Objective Vital Signs Date Temp Pulse Resp B/P (MAP) Pulse Ox O2 O2 Flow FiO2 Time Delivery Rate 11/17/18 98.2 83 17 168/79 95 Room Air 15:28 (108) 11/17/18 2.0 08:22 Intake and Output 11/16/18 11/16/18 11/17/18 1515:00 23:00 07:00 IntakeIntake Total 750 ml 350 ml BalanceBalance 750 ml 350 ml Exam GENERAL: VITAL SIGNS: per chart NECK: Supple. No JVD or lymphadenopathy. CARDIAC EXAM: S1, S2. No added sounds or murmurs. CHEST: clear bilaterally, No added sounds, rales or wheezes ABDOMEN: Soft, nontender. No guarding or rebound. EXTREMITIES: No cyanosis, clubbing or edema. NEUROLOGIC: Generalized weakness. No focal deficits. Results/Medications Result Diagram: 11/16/18 0513 11/16/18 0513 Medications Current Medications Azithromycin 250 ml @ 250 mls/hr Q24H IVPB Last administered on 11/16/18at 22:06; Admin Dose 250 MLS/HR; Start 11/14/18 at 22:30 IV Flush (NS 3 ml) 3 ml PER PROTOCOL IV ; Start 11/15/18 at 00:30 Ondansetron HCl (Zofran Inj) 4 mg Q4 PRN IV NAUSEA/VOMITING; Start 11/15/18 at 00:30 Acetaminophen (Tylenol Tab) 650 mg Q6H PRN PO .PAIN 1-3 OR TEMP Last administered on 11/17/18at 03:56; Admin Dose 650 MG; Start 11/15/18 at 00:30 Docusate Sodium (Colace) 100 mg Q12H PRN PO .CONSTIPATION; Start 11/15/18 at 00:30 Bisacodyl (Dulcolax) 5 mg DAILY PRN PO .CONSTIPATION; Start 11/15/18 at 00:30 Morphine Sulfate (morphine) 1 mg Q4H PRN IV SEVERE PAIN LEVEL 7-10 Last administered on 11/15/18at 15:46; Admin Dose 1 MG; Start 11/15/18 at 07:30 Heparin Sodium (Porcine) (Heparin (5000 Units/1ml)) 5,000 unit BID SC Last administered on 11/17/18at 08:51; Admin Dose 5,000 UNIT; Start 11/15/18 at 21:00 Assessment/Plan Hospital Course (Demo Recall) Assessment 1. Symptoms of commute acquired pneumonia with left perihilar mass versus infiltrate. Plan 1. Continue current antibiotics 2. Recommend outpatient PET/CT and follow-up with me 3. If PET CT scan suggestive of malignant process will consider bronchoscopy and/or thoracic surgery recommendations. GUICHO MOJICA MD, [facility] Nov 17, 2018 16:29
--- NOTE | 2018-11-17 17:59 | PN ---
DATE: 11/17/2018 SUBJECTIVE: The patient states she is feeling better. The right scapular pain has decreased. The p atient is now able to move right arm without pain, et cetera. The patient denies other chest pain, no shortness of breath or cough. OBJECTIVE: GENERAL: The patient is a well-developed, well-nourished female in no acute distress. VITAL SIGNS: Temperature 98.2 orally, pulse 83 per minute and regular, respirations 17, blood pressu re 168/79, pulse oximetry 95% on room air. SKIN: No ecchymosis, no petechiae or rashes. HEENT: Normocephalic. No evidence of trauma. Pupils are equal, round, react to light and accommoda tion. Sclerae are nonicteric. Oral mucosa is moist without lesions. NECK: Supple. No jugular venous distention or thyroid enlargement. No carotid bruits. CHEST: Clear to auscultation and percussion. No rhonchi, wheezes, rales or rubs. The patient does not have any splinting at this time. There is no pain on palpation of the scapula on the right side. HEART: Regular sinus rhythm. No S3, S4, murmurs or rubs. ABDOMEN: Obese. There are no masses or ascites. Bowel sounds are active. No hernia defects. EXTREMITIES: Good range of motion includes the right arm. No clubbing, edema or cyanosis. No palpa ble cords or Homans sign. NEUROLOGIC: Normal. ASSESSMENT: 1. Right scapular pain, resolved. 2. Left indeterminate 2.3 cm mass-like opacity in left perihilar area of the lower lobe. The patient did have a bone scan today which is negative. CEA was 3.8. CT scan of the abdomen and pelvis are pending at this time. Given the fact that the patient's pain seems to have resolved and it is not clear that this pain was at all related to the abnormalities seen in the left perihilar area, perhaps the patient can be disch arged and have followup as an outpatient. This might include a PET-CT scan if the left perihilar mas s persists. Dictated By: DEYANIRA NARVAEZ MD, SR/NTS Conf#: [id number] DID#: [id number] CC: JOHNIE ISBELL MD;*EndCC*
[2018-11-17 20:00] VITALS: BP 159/79; PULSE 88; RESP 18
[2018-11-17] MEDS: AZITHROMYCIN 500MG/NS (PMX) 250 ML IVPB SCH (21:59)
[2018-11-17] MEDS: morphine 2 MG INJ IV PRN (22:11)
[2018-11-18 02:00] VITALS: BP 129/60; PULSE 83; RESP 17
[2018-11-18 07:55] VITALS: BP 160/64; PULSE 84; RESP 16
--- NOTE | 2018-11-18 08:35 | PDOCDIS ---
Discharge Instructions DIAGNOSIS Discharge Diagnosis 1. Sepsis secondary to community acquired pneumonia. 2. Abnormal CT scan of the chest : Indeterminate 2.3 cm mass-like opacity is present in the perihilar left lower lobe 3. Hypertension. 4. Diabetes. 5. suspect hyperlipidemia. 6. Anemia. CONDITION [id number] Patient Condition: [id number] Stable HOME CARE INSTRUCTIONS: [id number] Diet Instructions: [id number] Low Fat /Cholesterol FOLLOW UP/APPOINTMENTS Follow-up Plan 1. Call and make an appointment to see Dr. David Perez (oncologist) for follow up of your abnormal chest imaging. Office Address [address] [facility] [place] [address] Office 2. Follow up with Dr. Gregorio Sales (orthopedic surgeon) in 1-2 weeks for further monitoring of your right shoulder pain Office Address [address] [address] [facility] [address] [place] [address] Office 3. Follow up with Dr. Koby Jorgensen (wire frame dipper) in 1-2 weeks for further monitoring of your lungs Office Address [address] [facility] [facility] [address] [place] [address] Office HUONG COHN NP Nov 18, 2018 08:35
[2018-11-18] MEDS: HEPARIN 5,000 UNIT/1 ML VIAL SC SCH (08:44)
[2018-11-18] MEDS ORDERED: AZIT500T5 PO (12:53)
--- NOTE | 2018-11-18 12:57 | DS ---
Date/Time of Note Date/Time of Note DATE: 11/18/18 TIME: 12:56 Discharge Summary Admission/Discharge Info Admit Date/Time Nov 14, 2018 at 22:58 Discharge Date/Time Discharge Diagnosis 1. Sepsis secondary to community acquired pneumonia. 2. Abnormal CT scan of the chest : Indeterminate 2.3 cm mass-like opacity is present in the perihilar left lower lobe 3. Hypertension. 4. Diabetes. 5. suspect hyperlipidemia. 6. Anemia. Patient Condition: Stable Hospital Course This is a 78-year-old female with no reported past medical history who came to the hospital due to reports of right scapular pain for 2 days duration as well as some shortness of breath. Patient did have chest imaging consistent with pneumonia and she was provided with antibiotics for this. She did have abnormal x-ray and we did get CT scan of the chest showing anterior determinate 2.3 cm masslike opacity in the left lower lung lobe. She was seen by oncologist as well as by dermatologist. After evaluation patient was advised for outpatient follow-up for follow-up and possible PET scan. As for her right shoulder she was provided with physical therapy services and she was also provided with analgesics as needed. She was advised for outpatient follow-up with orthopedic surgeon for further monitoring of her right shoulder. During her stay she did improve. She was otherwise otherwise medically with antihypertensives for high blood pressure and insulin for diabetes. The plan of care was discussed with t sugey patient and patient verbalized understanding. On the day of discharge patient was in stable condition Discussed POC with Dr. [facility] Active Scripts Azithromycin* (Azithromycin*) 500 Mg Tablet, 500 MG PO DAILY, #3 TAB Prov:HUONG COHN [employer]AIR LIFT OPERATOR 11/18/18 Hydrophilic Base* (Aquaphor*) 454 Gm-Topical Oint, 1 APPLIC TOP BID for 7 Days, JAR Prov:MARIANO KAYE 11/06/18 Hydrocodone/Acetaminophen ([place] 5-325 Tablet) 1 Each Tablet, 1 TAB PO Q6H PRN for PAIN, #12 TAB Prov:CAMERON LINDSEY DO 11/05/17 Ibuprofen* (Motrin*) 600 Mg Tab, 600 MG PO Q8, #30 TAB Prov:CAMERON LINDSEY DO 11/05/17 Follow-up Plan 1. Call and make an appointment to see Dr. David Perez (oncologist) for follow up of your abnormal chest imaging. Office Address [address] [facility] [address] [facility] [place] [address] Office 2. Follow up with Dr. Gregorio Sales (orthopedic surgeon) in 1-2 weeks for further monitoring of your right shoulder pain Office Address [address] [facility] [address] [place] [address] Office 3. Follow up with Dr. Koby Jorgensen (dermatologist) in 1-2 weeks for further monitoring of your lungs Office Address [address] [place] [address] Office Primary Care Provider Not On Staff Doctor Time spent on discharge: > 30 minutes Pending Labs Laboratory Tests Test 11/18/18 05:36 White Blood Count 7.6 10^3/ul (4.8-10.8) Red Blood Count 3.72 10^6/ul (4.20-5.40) Hemoglobin 9.6 g/dl (12.0-16.0) Hematocrit 29.6 % (37.0-47.0) Mean Corpuscular Volume 79.6 fl (82.0-101.0) Mean Corpuscular Hemoglobin 25.8 pg (29.0-33.0) Mean Corpuscular Hemoglobin Concent 32.4 g/dl (32.0-37.0) Red Cell Distribution Width 21.2 % (11.5-14.5) Platelet Count 223 10^3/UL (140-415) Mean Platelet Volume 11.0 fl (7.4-10.4) Immature Granulocytes % 0.400 % (0.001-0.429) Neutrophils % 58.7 % (39.0-77.0) Lymphocytes % 26.8 % (15.0-51.0) Monocytes % 7.5 % (0.0-11.0) Eosinophils % 6.2 % (0.0-7.0) Basophils % 0.4 % (0.0-2.0) Nucleated Red Blood Cells % 0.0 /100WBC (0.0-0.0) Immature Granulocytes # 0.030 10^3/ul (0.0-0.031) Neutrophils # 4.5 10^3/ul (1.6-7.5) Lymphocytes # 2.1 10^3/ul (0.8-2.9) Monocytes # 0.6 10^3/ul (0.3-0.9) Eosinophils # 0.5 10^3/ul (0.0-0.5) Basophils # 0.0 10^3/ul (0.0-0.1) Nucleated Red Blood Cells # 0.0 10^3/ul (0.0-0.0) Sodium Level 141 mmol/L (135-144) Potassium Level 4.5 mmol/L (3.5-5.1) Chloride Level 110 mmol/L (97-110) Carbon Dioxide Level 24 mmol/L (21-31) Anion Gap 7 (5-13) Blood Urea Nitrogen 15 mg/dl (7-20) Creatinine 0.65 mg/dl (0.44-1.00) Est Glomerular Filtrat Rate mL/min mL/min (>60) Glucose Level 100 mg/dl (70-220) Calcium Level 9.0 mg/dl (8.4-10.2) Triglycerides Level 111 mg/dl (0-149) Cholesterol Level 181 mg/dl (100-200) LDL Cholesterol, Calculated 116 mg/dl HDL Cholesterol 43 mg/dl (33-92) Cholesterol/HDL Ratio 4.2 RATIO HUONG COHN NP Nov 18, 2018 12:57
== END 2018-11-18 14:45 | disposition home or self-care (01) | DRG 871 ==
LOC: FTE 20:23 → 6WM 22:58 → 2NE 11-17 15:15
PROVIDERS: ADMIT Family Medicine; ATTEND Family Medicine
DX: A41.9 Sepsis, unspecified organism (principal); J18.9 Pneumonia, unspecified organism; I10 Essential (primary) hypertension; D50.9 Iron deficiency anemia, unspecified; E11.9 Type 2 diabetes mellitus without complications; E78.5 Hyperlipidemia, unspecified; R22.2 Localized swelling, mass and lump, trunk; M25.511 Pain in right shoulder
CPT/HCPCS: 36415; 71046; 71250; 72100; 74178; 78306; 80048; 80053; 80061; 82378; 82728; 83036; 83540; 83605; 83735; 84443; 85025; 97161; A9503; J0456; J0696; J1644; J1885; J2270; Q9967